=== PATIENT | male | born 1990 | race Caucasian/White ===

== ENCOUNTER 2016-12-27 18:30 | Emergency (ER) | payer OTHER ==
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
[2016-12-27] MEDS ORDERED: IBUPROFEN 600 MG TABLET PO ONE (20:30)
[2016-12-27] MEDS ORDERED: ACETAMINOPHEN 325 MG TABLET PO ONE (20:30)
[2016-12-27 20:43] VITALS: BP 126/74
== END 2016-12-27 20:44 | disposition home or self-care (01) ==
LOC: ER 18:30
DX: S16.1XXA Strain of muscle, fascia and tendon at neck level, initial encounter (principal); M54.6 Pain in thoracic spine; M54.9 Dorsalgia, unspecified; M54.2 Cervicalgia; V87.7XXA Person injured in collision between other specified motor vehicles (traffic), initial encounter; F17.200 Nicotine dependence, unspecified, uncomplicated
CPT/HCPCS: 72070; 99283